=== PATIENT | female | born 1970 | race Caucasian/White ===

== ENCOUNTER 2020-05-03 21:24 | Emergency (ER) | payer MEDICARE, MEDICAID ==
[~2020-05-03] VITALS: Ht 165.1 cm; Wt 111.0 kg
[2020-05-03 22:30] LABS: BASO % 1 % (0-3); EOS # 0.1 x10^3/uL (0.0-0.7); EOS % 1 % (0-3); HEMATOCRIT 35.1 % (36.0-47.0); HEMOGLOBIN 11.4 g/dL (12.0-15.5); LYMPH # 1.5 x10^3/uL (1.0-4.8); LYMPH % 31 % (24-48); MEAN CORPUSCULAR HEMOGLOBIN 26 pg (25-35); MEAN CORPUSCULAR HGB CONC 33 g/dL (31-37); MEAN CORPUSCULAR VOLUME 79 fL (79-100); MONO # 0.5 x10^3/uL (0.0-1.1); MONO % 10 % (0-9); NEUT # 2.9 x10^3/uL (1.8-7.7); NEUT % 58 % (31-73); PLATELET COUNT 182 x10^3/uL (140-400); RED BLOOD COUNT 4.48 x10^6/uL (3.50-5.40); RED CELL DISTRIBUTION WIDTH 15.9 % (11.5-14.5); WHITE BLOOD COUNT 5.1 x10^3/uL (4.0-11.0)
--- NOTE | 2020-05-03 22:33 | EKG ---
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
--- NOTE | 2020-05-03 22:43 | PHYS DOC ---
Past Medical History Past Medical History: Diabetes-Type II, GERD, High Cholesterol, Hypothyroid, Seizure Additional Past Medical Histor: ZAC, LEFT FOOT DROP, CDIFF Past Surgical History: Other Additional Past Surgical Histo: "3 OSTOMY SURGERIES AND A TAKE DOWN." Smoking Status: Never Smoker Alcohol Use: None General Adult EDM: Chief Complaint: MECHANICAL FALL HPI: HPI: Patient is a 50 year old female who presents with right lower orbit hematoma following mechanical fall. Patient reportedly fell while she was taking a shower at her senior care and was found by her roommate. She does not remembering falling or what caused her to fall. She reports an 8/10 pain unde rneath her orbit on her upper right cheek. She describes the pain as a pressure that feels like she has a baseball in her cheek. She reports not having any other pain including neck pain midline pain back pain or extremity pain. EOM are intact bilaterally. She has an extensive past medical and surgical history including diabetes, neuropathy, multiple abdominal surgeries--and reportedly only has her ileum left of her small intestine. Has no other complaints or reported injuries at this time. Review of Systems: Review of Systems: Constitutional: Denies fever or chills Eyes: Denies redness or eye pain. EOM intact bilaterally HENT: Denies nasal congestion or sore throat Respiratory: Denies cough or shortness of breath Cardiovascular: Denies chest pain or palpitations GI: Denies abdominal pain, nausea, or vomiting : Denies dysuria or hematuria Musculoskeletal: Denies back pain or joint pain Integument: Denies rash or skin lesions. Neurologic: Denies headache, focal weakness or sensory changes Complete systems were reviewed and found to be within normal limits, except as documented in this note. Heart Score: C/O Chest Pain: N/A Current Medications: Current Medications Medications (Trade) Dose Ordered Sig/Farida Start Time Stop Time Status Last Admin Dose Admin Ketorolac Tromethamine (Toradol 15mg Vial) 15 mg 1X ONCE 05/03/20 22:45 05/03/20 22:46 UNV Sodium Chloride 1,000 ml @ 1,000 mls/hr 1X ONCE 05/03/20 23:00 05/03/20 23:59 Allergies: Allergies: Allergies Coded Allergies Type Severity Reaction Last Updated Verified Benzodiazepines Allergy Intermediate 05/03/20 Yes blueberry Allergy Intermediate 05/03/20 Yes chlorpromazine Allergy Intermediate 05/03/20 Yes mushroom Allergy Intermediate 05/03/20 Yes psyllium Allergy Intermediate 05/03/20 Yes Physical Exam: PE: Constitutional: Well developed, well nourished, no acute distress, non-toxic appearance HENT: Normocephalic, atraumatic head. Hematoma on right cheek/lower orbit present Eyes: PERRL, EOMI, conjunctiva normal, no discharge Neck: Normal range of motion, no tenderness, supple Lungs & Thorax: No respiratory distress, equal chest rise and fall Abdomen: Soft, no tenderness Skin: Warm, dry, no erythema, no rash Back: No tenderness, no CVA tenderness Extremities: No tenderness, ROM intact, no edema Neurologic: Alert and oriented X 3, normal motor function, normal sensory function, no focal deficits noted Psychologic: Affect normal, judgment normal Current Patient Data: Labs: Laboratory Tests Test 05/03/20 21:34 White Blood Count 5.1 x10^3/uL (4.0-11.0) Red Blood Count 4.48 x10^6/uL (3.50-5.40) Hemoglobin 11.4 g/dL (12.0-15.5) L Hematocrit 35.1 % (36.0-47.0) L Mean Corpuscular Volume 79 fL (79-100) Mean Corpuscular Hemoglobin 26 pg (25-35) Mean Corpuscular Hemoglobin Concent 33 g/dL (31-37) Red Cell Distribution Width 15.9 % (11.5-14.5) H Platelet Count 182 x10^3/uL (140-400) Neutrophils (%) (Auto) 58 % (31-73) Lymphocytes (%) (Auto) 31 % (24-48) Monocytes (%) (Auto) 10 % (0-9) H Eosinophils (%) (Auto) 1 % (0-3) Basophils (%) (Auto) 1 % (0-3) Neutrophils # (Auto) 2.9 x10^3/uL (1.8-7.7) Lymphocytes # (Auto) 1.5 x10^3/uL (1.0-4.8) Monocytes # (Auto) 0.5 x10^3/uL (0.0-1.1) Eosinophils # (Auto) 0.1 x10^3/uL (0.0-0.7) Basophils # (Auto) 0.0 x10^3/uL (0.0-0.2) Laboratory Tests 05/03/20 21:34 Vital Signs: Vital Signs Date Time Temp Pulse Resp B/P (MAP) Pulse Ox O2 Delivery O2 Flow Rate FiO2 05/03/20 21:31 98.1 81 12 166/68 (100) 97 Room Air 98.1 EKG: EKG: Reviewed at 2230. Sinus rhythm, no STEMI. HR 76 bpm. QT/QTc 400/455 ms. Radiology/Procedures: Radiology/Procedures: PROCEDURE: CT HEAD AND CERVICAL SPINE WO Exam: CT head, maxillofacial and cervical spine INDICATION: Pain, status post fall with facial trauma TECHNIQUE: Sequential axial images through the head, face and cervical spine were obtained without the administration of IV contrast. Comparisons: None FINDINGS: Head: No focal parenchymal lesion or hemorrhage is identified. There is no midline shift or sulcal effacement. No acute vascular territory infarction is identified. Terry-white distinction is preserved. The ventricular system is within normal limits without compression hydrocephalus. The basal cisterns are well maintained. Face: There is a soft tissue contusion overlying the right maxillary sinus. The visualized portions of the paranasal sinuses and mastoid air cells are well- pneumatized. No acute fractures. Cervical spine: Straightening of cervical spine which may positional. Vertebral body heights are well-maintained. Fracture to the cervical spine is not identified. No significant spondylotic change in the cervical spine. Visualized paraspinal soft tissues are unremarkable. IMPRESSION: 1. No acute intracranial abnormality. 2. Soft tissue contusion in the subcutaneous fat overlying the right maxillary sinus. Underlying osseous abnormality. 3. Negative CT C-spine for acute traumatic injury. Exposure: One or more of the following in the visualized dose reduction techniques were utilized for this examination: 1. Automated exposure control 2. Adjustment of the MA and/or KV according to patient size Use of iterative of reconstructive technique Electronically signed by: Bhavik Verdugo MD (05/03/2020 11:11 PM) [facility] PROCEDURE: CT MAXILLOFACIAL WO CONTRAST Exam: CT head, maxillofacial and cervical spine INDICATION: Pain, status post fall with facial trauma TECHNIQUE: Sequential axial images through the head, face and cervical spine were obtained without the administration of IV contrast. Comparisons: None FINDINGS: Head: No focal parenchymal lesion or hemorrhage is identified. There is no midline shift or sulcal effacement. No acute vascular territory infarction is identified. Terry-white distinction is preserved. The ventricular system is within normal limits without compression hydrocephalus. The basal cisterns are well maintained. Face: There is a soft tissue contusion overlying the right maxillary sinus. The visualized portions of the paranasal sinuses and mastoid air cells are well- pneumatized. No acute fractures. Cervical spine: Straightening of cervical spine which may positional. Vertebral body heights are well-maintained. Fracture to the cervical spine is not identified. No significant spondylotic change in the cervical spine. Visualized paraspinal soft tissues are unremarkable. IMPRESSION: 1. No acute intracranial abnormality. 2. Soft tissue contusion in the subcutaneous fat overlying the right maxillary sinus. Underlying osseous abnormality. 3. Negative CT C-spine for acute traumatic injury. Exposure: One or more of the following in the visualized dose reduction techniques were utilized for this examination: 1. Automated exposure control 2. Adjustment of the MA and/or KV according to patient size Use of iterative of reconstructive technique Electronically signed by: Bhavik Verdugo MD (05/03/2020 11:11 PM) [facility] Course & Med Decision Making: Course & Med Decision Making Pertinent Labs and Imaging studies reviewed. (See chart for details) As patient does not remember her fall, she was evaluated for possible reasons leading to syncope. Labs, electrolytes, lactic acid, orthostatics, heart enzymes, UA, EKG were obtained. EKG showed normal sinus rhythm and heart enzymes showed no signs of cardiac arrest. CT head and face were obtained which showed no fracture and no acute abnormalities. Patient was found to have low potassium and magnesium and electrolytes were replenished in ED. Urinalysis showed no sign of UTI or infection. She had normal orthostatics. Patient's lac tic acid was within normal limits, suggesting that this event was likely not due to a seizure. She received medication for pain control and an ice pack to decrease swelling over affected area. Patient stable for discharge with outpatient follow-up with PCP. Discussed findings and plan with patient, who acknowledges understanding and agreement. Colten Disclaimer: Colten Disclaimer: This electronic medical record was generated, in whole or in part, using a voice recognition dictation system. Departure Departure Impression: Primary Impression: Fall Qualified Codes: W19.XXXA - Unspecified fall, initial encounter Additional Impressions: Hypomagnesemia Hypokalemia Contusion of face Qualified Codes: S00.83XA - Contusion of other part of head, initial encounter Disposition: 01 DC HOME SELF CARE/HOMELESS Condition: STABLE Referrals: FELIPE HANSEN MD (PCP) Patient Instructions: Facial or Scalp Contusion, [id number], Fall Prevention and Home Safety, [id number], Hypokalemia, Hypomagnesemia, Potassium Content of Foods Additional Instructions: ICE area of discomfort 20 min on then leave off next 20 mins. Repeat several times daily as needed for next few days. Take over the counter Tylenol and/or Ibuprofen for pain or discomfort. MAGDALENA FAUSTIN DO May 03, 2020 22:42
[2020-05-03 22:44] LABS: CALCIUM 8.6 mg/dL (8.5-10.1); CREATININE 1.1 mg/dL (0.6-1.0); GFR 52.8; POTASSIUM 3.4 mmol/L (3.5-5.1)
[2020-05-03 22:52] LABS: ALBUMIN 3.7 g/dL (3.4-5.0); ALBUMIN/GLOBULIN RATIO 1.1 (1.0-1.7); MAGNESIUM 1.4 mg/dL (1.8-2.4); TOTAL BILIRUBIN 0.2 mg/dL (0.2-1.0)
[2020-05-03] MEDS ORDERED: IV NORMAL SALINE 1000ML BAG 1,000 ML IV ONE (23:00)
[2020-05-03] MEDS ORDERED: KETOROLAC 15 MG/ML VIAL. IVP ONE (23:00)
--- NOTE | 2020-05-03 23:14 | RAD ---
Exam: CT head, maxillofacial and cervical spine INDICATION: Pain, status post fall with facial trauma TECHNIQUE: Sequential axial images through the head, face and cervical spine were obtained without th e administration of IV contrast. Comparisons: None FINDINGS: Head: No focal parenchymal lesion or hemorrhage is identified. There is no midline shift or sulcal effaceme nt. No acute vascular territory infarction is identified. Terry-white distinction is preserved. The ventricular system is within normal limits without compression hydrocephalus. The basal cisterns are well maintained. Face: There is a soft tissue contusion overlying the right maxillary sinus. The visualized portions of the paranasal sinuses and mastoid air cells are well-pneumatized. No acute fractures. Cervical spine: Straightening of cervical spine which may positional. Vertebral body heights are well-maintained. Fracture to the cervical spine is not identified. No significant spondylotic change in the cervical spine. Visualized paraspinal soft tissues are unremarkable. IMPRESSION: 1. No acute intracranial abnormality. 2. Soft tissue contusion in the subcutaneous fat overlying the right maxillary sinus. Underlying oss eous abnormality. 3. Negative CT C-spine for acute traumatic injury. Exposure: One or more of the following in the visualized dose reduction techniques were utilized for this examination: 1. Automated exposure control 2. Adjustment of the MA and/or KV according to patient size Use of iterative of reconstructive technique Electronically signed by: Bhavik Verdugo MD (05/03/2020 11:11 PM) [facility]
[2020-05-03 23:24] LABS: BILIRUBIN,URINE NEGATIVE (NEG); CLARITY,URINE CLOUDY; COLOR,URINE YELLOW; NITRITE,URINE NEGATIVE (NEG); PH,URINE 5.5 (<5.0-8.0); PROTEIN,URINE 100 mg/dL (NEG-TRACE); UROBILINOGEN,URINE 0.2 mg/dL (0.2 mg/dL)
[2020-05-03 23:31] LABS: BACTERIA,URINE MODERATE /HPF (0-FEW)
[2020-05-03 23:32] LABS: RBC,URINE 0 /HPF (0-2); WBC,URINE OCC /HPF (0-4)
[2020-05-03] MEDS ORDERED: POTASSIUM CHLORIDE 20 MEQ TABLET.ER. PO ONE (23:45)
[2020-05-03] MEDS ORDERED: MAGNESIUM CHLORIDE ER 64 MG TABLET.ER PO ONE (23:45)
[2020-05-04 00:15] VITALS: BP 188/67
[2020-05-05] MEDS ORDERED: OMEP20CA16 PO (04:24)
[2020-05-05] MEDS ORDERED: METF500T16 PO (04:24)
[2020-05-05] MEDS ORDERED: FERR325T14 PO (04:24)
[2020-05-05] MEDS ORDERED: SENN8.6T11 PO (04:24)
[2020-05-05] MEDS ORDERED: LACO50TA PO (04:24)
[2020-05-05] MEDS ORDERED: TRAZ-118 PO (04:24)
[2020-05-05] MEDS ORDERED: ATOR10TA60 PO (04:24)
[2020-05-05] MEDS ORDERED: LEVO75TA5 PO (04:24)
[2020-05-05] MEDS ORDERED: VENL75TA2 PO (04:24)
[2020-05-05] MEDS ORDERED: SITA100T PO (04:24)
[2020-05-05] MEDS ORDERED: GABA600T7 PO (04:24)
[2020-05-05] MEDS ORDERED: ASCO500C PO (04:24)
[2020-05-05] MEDS ORDERED: FENO145T3 PO (04:24)
== END 2020-05-04 00:28 | disposition home or self-care (01) ==
LOC: ER 21:24 → EDBD 21:24 → ER 05-04 00:28
DX: S00.83XA Contusion of other part of head, initial encounter (principal); E83.42 Hypomagnesemia; E87.6 Hypokalemia; E11.9 Type 2 diabetes mellitus without complications; K21.9 Gastro-esophageal reflux disease without esophagitis; E78.00 Pure hypercholesterolemia, unspecified; E03.9 Hypothyroidism, unspecified; W18.39XA Other fall on same level, initial encounter; Y93.E1 Activity, personal bathing and showering; Y92.128 Other place in nursing home as the place of occurrence of the external cause; Y99.8 Other external cause status
CPT/HCPCS: 99285; J1885; J7030; 36415; 70450; 70486; 72125; 80053; 81001; 82553; 83605; 83735; 84484; 85025; 87086; 93005; 96361; 96374

== ENCOUNTER 2020-05-04 08:01 | Emergency (ER) | payer MEDICARE, MEDICAID ==
[~2020-05-04] VITALS: Ht 175.3 cm; Wt 95.0 kg
[2020-05-04 08:26] LABS: BASO # 0.1 x10^3/uL (0.0-0.2); BASO % 1 % (0-3); EOS # 0.1 x10^3/uL (0.0-0.7); EOS % 2 % (0-3); HEMATOCRIT 37.2 % (36.0-47.0); HEMOGLOBIN 12.3 g/dL (12.0-15.5); LYMPH # 1.9 x10^3/uL (1.0-4.8); LYMPH % 36 % (24-48); MEAN CORPUSCULAR HEMOGLOBIN 26 pg (25-35); MEAN CORPUSCULAR HGB CONC 33 g/dL (31-37); MEAN CORPUSCULAR VOLUME 80 fL (79-100); MONO # 0.5 x10^3/uL (0.0-1.1); MONO % 10 % (0-9); NEUT # 2.7 x10^3/uL (1.8-7.7); NEUT % 51 % (31-73); PLATELET COUNT 185 x10^3/uL (140-400); RED BLOOD COUNT 4.68 x10^6/uL (3.50-5.40); WHITE BLOOD COUNT 5.2 x10^3/uL (4.0-11.0)
[2020-05-04 08:35] LABS: CALCIUM 8.6 mg/dL (8.5-10.1); GFR 58.9; POTASSIUM 4.1 mmol/L (3.5-5.1)
[2020-05-04] MEDS ORDERED: LACOSAMIDE 50 MG TABLET PO STA (08:41)
[2020-05-04 08:42] LABS: ALBUMIN 3.5 g/dL (3.4-5.0); ALBUMIN/GLOBULIN RATIO 1.1 (1.0-1.7); MAGNESIUM 1.5 mg/dL (1.8-2.4); TOTAL BILIRUBIN 0.2 mg/dL (0.2-1.0); TOTAL PROTEIN 6.7 g/dL (6.4-8.2)
--- NOTE | 2020-05-04 08:45 | PHYS DOC ---
Past Medical History Past Medical History: Diabetes-Type II, GERD, High Cholesterol, Hypothyroid, Seizure Additional Past Medical Histor: ZAC, LEFT FOOT DROP, CDIFF, Borderline personality, Past Surgical History: Other Additional Past Surgical Histo: "3 OSTOMY SURGERIES AND A TAKE DOWN." Smoking Status: Never Smoker Alcohol Use: None General Adult EDM: Chief Complaint: SEIZURE HPI: HPI: Patient is a 50 year old female who [facility] due to [facility] activity. Patient has history of seizure disorder, she is on Vimpat, 50 mg twice a day. Patient had not taken her medication this morning. Patient was evaluated here last night after she fell and hit her head on the ground, CT scan of head, C-spine, facial bones did not show any acute problem. Patient was found to have low potassium and low magnesium. Patient was given potassium and will be observed in the ER. Patient denied headache, no neck pain at this time, denies any cough or fever. Review of Systems: Review of Systems: Constitutional: Denies fever or chills. [] Eyes: Denies change in visual acuity. [] HENT: Denies nasal congestion or sore throat. [] Respiratory: Denies cough or shortness of breath. [] Cardiovascular: Denies chest pain or edema. [] GI: Denies abdominal pain, nausea, vomiting, bloody stools or diarrhea. [] : Denies dysuria. [] Musculoskeletal: Denies back pain or joint pain. [] Integument: Denies rash. [] Neurologic: Denies headache, focal weakness or sensory changes. Positive for seizure. Endocrine: Denies polyuria or polydipsia. [] Lymphatic: Denies swollen glands. [] Psychiatric: Denies depression or anxiety. [] Heart Score: C/O Chest Pain: N/A Risk Factors: Risk Factors: DM, Current or recent (<one month) smoker, HTN, HLP, family history of CAD, obesity. Risk Scores: Score 0 - 3: 2.5% MACE over next 6 weeks - Discharge Home Score 4 - 6: 20.3% MACE over next 6 weeks - Admit for Clinical Observation Score 7 - 10: 72.7% MACE over next 6 weeks - Early Invasive Strategies Current Medications: Current Medications Medications (Trade) Dose Ordered Sig/Farida Start Time Stop Time Status Last Admin Dose Admin Lacosamide (Vimpat) 50 mg 1X STAT 05/04/20 08:41 05/04/20 08:42 DC Allergies: Allergies: Allergies Coded Allergies Type Severity Reaction Last Updated Verified Benzodiazepines Allergy Intermediate 05/03/20 Yes blueberry Allergy Intermediate 05/03/20 Yes chlorpromazine Allergy Intermediate 05/03/20 Yes mushroom Allergy Intermediate 05/03/20 Yes psyllium Allergy Intermediate 05/03/20 Yes Physical Exam: PE: Constitutional: Well developed, well nourished, no acute distress, non-toxic appearance. [] HENT: Normocephalic, atraumatic, bilateral external ears normal, oropharynx moist, no oral exudates, nose normal. Right-sided facial contusion from the fall last night Eyes: PERRLA, EOMI, conjunctiva normal, no discharge. [] Neck: Normal range of motion, no tenderness, supple, no stridor. [] Cardiovascular:Heart rate regular rhythm, no murmur [] Lungs & Thorax: Bilateral breath sounds clear to auscultation [] Abdomen: Bowel sounds normal, soft, no tenderness, no masses, no pulsatile masses. [] Skin: Warm, dry, no erythema, no rash. [] Back: No tenderness, no CVA tenderness. [] Extremities: No tenderness, no cyanosis, no clubbing, ROM intact, no edema. [] Neurologic: Alert and oriented X 3, normal motor function, normal sensory function, no focal deficits noted. [] Psychologic: Affect normal, judgement normal, mood normal. [] Current Patient Data: Labs: Laboratory Tests Test 05/04/20 08:10 White Blood Count 5.2 x10^3/uL (4.0-11.0) Red Blood Count 4.68 x10^6/uL (3.50-5.40) Hemoglobin 12.3 g/dL (12.0-15.5) Hematocrit 37.2 % (36.0-47.0) Mean Corpuscular Volume 80 fL (79-100) Mean Corpuscular Hemoglobin 26 pg (25-35) Mean Corpuscular Hemoglobin Concent 33 g/dL (31-37) Red Cell Distribution Width 16.0 % (11.5-14.5) H Platelet Count 185 x10^3/uL (140-400) Neutrophils (%) (Auto) 51 % (31-73) Lymphocytes (%) (Auto) 36 % (24-48) Monocytes (%) (Auto) 10 % (0-9) H Eosinophils (%) (Auto) 2 % (0-3) Basophils (%) (Auto) 1 % (0-3) Neutrophils # (Auto) 2.7 x10^3/uL (1.8-7.7) Lymphocytes # (Auto) 1.9 x10^3/uL (1.0-4.8) Monocytes # (Auto) 0.5 x10^3/uL (0.0-1.1) Eosinophils # (Auto) 0.1 x10^3/uL (0.0-0.7) Basophils # (Auto) 0.1 x10^3/uL (0.0-0.2) Laboratory Tests 05/04/20 08:10 Vital Signs: Vital Signs Date Time Temp Pulse Resp B/P (MAP) Pulse Ox O2 Delivery O2 Flow Rate FiO2 05/04/20 08:19 97.9 80 20 188/67 (107) 98 Room Air 97.9 EKG: EKG: EKG was done at 9-year-old 7, heart rate of 82 beats per minutes, sinus rhythm, no ST segment elevation, normal axis. Radiology/Procedures: Radiology/Procedures: [][facility] [address] [place], [place] [id number] IMAGING REPORT Signed PATIENT: MICKI OSUNA ACCOUNT: [id number] : 1970 LOCATION: ER AGE: 50 SEX: F EXAM STATUS: PRE ER ORD. PHYSICIAN: PARESH TINOCO DO REASON: FELL LAST NIGHT, HEAD INJURY, HAD A SEIZURE THIS MORNING PROCEDURE: CT HEAD WO CONTRAST EXAMINATION: CT HEAD/BRAIN WO (CT HEAD WITHOUT IV CONTRAST) CLINICAL HISTORY: FELL LAST NIGHT, HEAD INJURY, HAD A SEIZURE THIS MORNING TECHNIQUE: Serial axial images without IV contrast were obtained from the vertex to the foramen magnum. CT Dose Reduction Employed: One or more of the following individualized dose reduction techniques were utilized for this examination: 1. Automated exposure control 2. Adjustment of the mA and/or kV according to patient size 3. Use of iterative reconstruction technique. COMPARISON: Head and maxillofacial CT 05/03/2020 FINDINGS: Acute Change: No evidence of an acute infarct or other acute parenchymal process. Hemorrhage: No evidence of acute intracranial hemorrhage. Mass Lesion/Mass Effect: No evidence of intracranial mass or extraaxial fluid collection. No significant mass effect. Chronic Change: No significant changes. Parenchyma: No significant volume loss. Parenchyma otherwise within normal limits for age. Ventricles: Ventricles within normal limits for age. Paranasal Sinuses and Skull Base: Visualized paranasal sinuses clear. Visualized skull base and soft tissues unremarkable. IMPRESSION: No evidence of acute intracranial abnormality or significant interval change. Electronically signed by: Job Jones DO (05/04/2020 9:09 AM) [facility] DICTATED and SIGNED BY: JOB JONES DO DATE: 05/04/20 [id number] Course & Med Decision Making: Course & Med Decision Making Pertinent Labs and Imaging studies reviewed. (See chart for details) Patient is a 50-year-old female who was [facility] EMS [facility] due to seizure activity. Patient is on Vimpat for seizure disorder, patient had not taken her morning medication. Patient had no seizure in the ER, her magnesium level still low, patient was given magnesium supplement and Vimpat in the ER. Patient will be discharged home, she will need to follow-up with her family physician and her neurologist for for seizure evaluation. Colten Disclaimer: Colten Disclaimer: This electronic medical record was generated, in whole or in part, using a voice recognition dictation system. Departure Departure Impression: Primary Impression: Seizure Additional Impression: Hypomagnesemia Disposition: 01 DC HOME SELF CARE/HOMELESS Condition: IMPROVED Referrals: FELIPE HANSEN MD (PCP) Follow up with your doctor this week Patient Instructions: Hypomagnesemia, Seizure, Adult Additional Instructions: Thank you for visiting our Emergency Department. We appreciate you trusting us with your care. If any additional problems come up don't hesitate to return to visit us. Please follow up with your primary care provider so they can plan additional care if needed and know about the problem that you had. If symptoms worsen come back to the Emergency Department. Any concerning symptoms that start such as chest pain, shortness of air, weakness or numbness on one side of the body, running high fevers or any other concerning symptoms return to the ER. PARESH TINOCO DO May 04, 2020 08:45
[2020-05-04] MEDS ORDERED: LIDOCAINE 1% Multi-Dose 20 ML VIAL. INJ ONE (09:00)
--- NOTE | 2020-05-04 09:12 | RAD ---
EXAMINATION: CT HEAD/BRAIN WO (CT HEAD WITHOUT IV CONTRAST) CLINICAL HISTORY: FELL LAST NIGHT, HEAD INJURY, HAD A SEIZURE THIS MORNING TECHNIQUE: Serial axial images without IV contrast were obtained from the vertex to the foramen magnu m. CT Dose Reduction Employed: One or more of the following individualized dose reduction techniques wer e utilized for this examination: 1. Automated exposure control 2. Adjustment of the mA and/or kV ac cording to patient size 3. Use of iterative reconstruction technique. COMPARISON: Head and maxillofacial CT 05/03/2020 FINDINGS: Acute Change: No evidence of an acute infarct or other acute parenchymal process. Hemorrhage: No evidence of acute intracranial hemorrhage. Mass Lesion/Mass Effect: No evidence of intracranial mass or extraaxial fluid collection. No signific ant mass effect. Chronic Change: No significant changes. Parenchyma: No significant volume loss. Parenchyma otherwise within normal limits for age. Ventricles: Ventricles within normal limits for age. Paranasal Sinuses and Skull Base: Visualized paranasal sinuses clear. Visualized skull base and soft tissues unremarkable. IMPRESSION: No evidence of acute intracranial abnormality or significant interval change. Electronically signed by: Job Morgan DO (05/04/2020 9:09 AM) [facility]
--- NOTE | 2020-05-04 09:29 | EKG ---
[facility] [address] [place] [address] Test Date: 2020-05-04 Test Time: 08:06:48 Pat Name: MICKI OSUNA Department: Room: Gender: F Program Review Director: : 1970 Requested By: PARESH TINOCO Order Number: [id number] Reading MD: Measurements Intervals [place] Rate: 82 P: 58 [place]: 192 QRS: 72 QRSD: 94 T: 70 QT: 404 QTc: 475 Interpretive Statements SINUS RHYTHM PROLONGED QT NO SPECIFIC ECG ABNORMALITIES RI6.02 No previous ECG available for comparison
[2020-05-04] MEDS ORDERED: MAGNESIUM SULFATE 2GM 50 ML IV ONE (09:45)
[2020-05-04 10:16] LABS: BILIRUBIN,URINE NEGATIVE (NEG); COLOR,URINE YELLOW; NITRITE,URINE NEGATIVE (NEG); PROTEIN,URINE 100 mg/dL (NEG-TRACE); UROBILINOGEN,URINE 0.2 mg/dL (0.2 mg/dL)
[2020-05-04 10:28] LABS: CLARITY,URINE HAZY
[2020-05-04 10:30] LABS: AMORPHOUS SEDIMENT,UR PRESENT /HPF; BACTERIA,URINE 0 /HPF (0-FEW)
[2020-05-04 10:34] LABS: GRANULAR CASTS,URINE OCCASIONAL /HPF; HYALINE CASTS, URINE FEW /HPF; RBC,URINE 0 /HPF (0-2)
[2020-05-04 12:33] VITALS: BP 170/101
[2020-05-05] MEDS ORDERED: FERR325T14 PO (04:24)
[2020-05-05] MEDS ORDERED: LEVO75TA5 PO (04:24)
[2020-05-05] MEDS ORDERED: GABA600T7 PO (04:24)
[2020-05-05] MEDS ORDERED: ASCO500C PO (04:24)
[2020-05-05] MEDS ORDERED: SITA100T PO (04:24)
[2020-05-05] MEDS ORDERED: SENN8.6T11 PO (04:24)
[2020-05-05] MEDS ORDERED: OMEP20CA16 PO (04:24)
[2020-05-05] MEDS ORDERED: ATOR10TA60 PO (04:24)
[2020-05-05] MEDS ORDERED: FENO145T3 PO (04:24)
[2020-05-05] MEDS ORDERED: VENL75TA2 PO (04:24)
[2020-05-05] MEDS ORDERED: LACO50TA PO (04:24)
[2020-05-05] MEDS ORDERED: TRAZ-118 PO (04:24)
[2020-05-05] MEDS ORDERED: METF500T16 PO (04:24)
== END 2020-05-04 13:15 | disposition home or self-care (01) ==
LOC: ER 08:01
DX: G40.909 Epilepsy, unspecified, not intractable, without status epilepticus (principal); E83.42 Hypomagnesemia; E11.9 Type 2 diabetes mellitus without complications; K21.9 Gastro-esophageal reflux disease without esophagitis; E78.00 Pure hypercholesterolemia, unspecified; E03.9 Hypothyroidism, unspecified; Z98.890 Other specified postprocedural states; Z88.8 Allergy status to other drugs, medicaments and biological substances; Z91.018 Allergy to other foods; Z88.6 Allergy status to analgesic agent
CPT/HCPCS: 36415; 70450; 80053; 81001; 82550; 83735; 84484; 85025; 93005; 96365; 99285; J3475

== ENCOUNTER 2020-05-25 02:30 | Emergency (ER) | payer MEDICARE, MEDICAID ==
[~2020-05-25] VITALS: Ht 170.2 cm; Wt 100.0 kg
[~2020-05-25 02:30] MED LIST: ASCO500C PO; ATOR10TA60 PO; CYAN100072 PO; FENO145T3 PO; FERR325T14 PO; GABA600T7 PO; LACO50TA PO; LEVO75TA5 PO; LORA2ORA7 PO; METF500T16 PO; NYST15PO9 TP; OMEP20CA16 PO; SENN8.6T11 PO; SITA100T PO; TRAZ-118 PO; VENL75TA2 PO
[2020-05-25 03:03] LABS: BASO # 0.1 x10^3/uL (0.0-0.2); BASO % 1 % (0-3); EOS # 0.1 x10^3/uL (0.0-0.7); EOS % 2 % (0-3); HEMATOCRIT 35.7 % (36.0-47.0); HEMOGLOBIN 11.8 g/dL (12.0-15.5); LYMPH % 35 % (24-48); MEAN CORPUSCULAR HEMOGLOBIN 26 pg (25-35); MEAN CORPUSCULAR HGB CONC 33 g/dL (31-37); MEAN CORPUSCULAR VOLUME 79 fL (79-100); MONO # 0.5 x10^3/uL (0.0-1.1); MONO % 9 % (0-9); NEUT # 3.1 x10^3/uL (1.8-7.7); NEUT % 53 % (31-73); PLATELET COUNT 193 x10^3/uL (140-400); RED BLOOD COUNT 4.54 x10^6/uL (3.50-5.40); RED CELL DISTRIBUTION WIDTH 15.7 % (11.5-14.5); WHITE BLOOD COUNT 5.8 x10^3/uL (4.0-11.0)
[2020-05-25 03:14] LABS: GFR 58.9; POTASSIUM 3.6 mmol/L (3.5-5.1)
[2020-05-25 03:19] LABS: ALBUMIN 3.5 g/dL (3.4-5.0); ALBUMIN/GLOBULIN RATIO 0.9 (1.0-1.7); TOTAL BILIRUBIN 0.3 mg/dL (0.2-1.0); TOTAL PROTEIN 7.2 g/dL (6.4-8.2)
[2020-05-25 04:06] LABS: PREG TEST PT QUAL NEGATIVE (NEG)
--- NOTE | 2020-05-25 04:13 | RAD ---
STUDY: CT head without contrast INDICATION: Fall. Seizure. COMPARISON: 05/16/2020 TECHNIQUE: Axial CT imaging through the head without the use of intravenous contrast. Sagittal and co anuradha reformats were obtained. One or more of the following individualized dose reduction techniques were utilized for this examinat ion: 1. Automated exposure control 2. Adjustment of the mA and/or kV according to patient size 3. Use of iterative reconstruction technique. FINDINGS: No acute intracranial hemorrhage. No midline shift or hydrocephalus. Unchanged sulcation pattern. No CT evidence for an acute cortical infarction. Partially imaged soft tissue prominence along the right aspect of the zygomatic arch was present prev iously. Nonspecific rightward gaze deviation. Redemonstration of diffuse calvarial thickening with a predilection for the frontal bone. No depressed calvarial fracture. IMPRESSION: No acute intracranial abnormality by CT. No apparent change from the 05/16/2020 comparison. Electronically signed by: KWABENA BARBOZA MD (05/25/2020 4:11 AM) [facility]
--- NOTE | 2020-05-25 05:12 | PHYS DOC ---
Past Medical History Past Medical History: Diabetes-Type II, GERD, High Cholesterol, Hypothyroid, Seizure Additional Past Medical Histor: ZAC, LEFT FOOT DROP, CDIFF, Borderline personality, Past Surgical History: Other Additional Past Surgical Histo: "3 OSTOMY SURGERIES AND A TAKE DOWN." Smoking Status: Never Smoker Alcohol Use: None Drug Use: None Adult General Chief Complaint Chief Complaint: SEIZURE HPI HPI Patient is a 50 year old female with a known past medical history of seizures, hypertension, hyperlipidemia, diabetes now presents emergency department for reported seizure-like activity. According to [facility] staff the patient was at home when she went on her call light. When I entered the room they noted that the patient was on the floor. Reported that she had to to male on tonic- clonic episodes by 2-minute postictal period. States the patient is normally communicative and alert and oriented x4 at baseline. No reported recent history of fevers or injury. Of note the patient was discharged approximately 1 week ago for similar condition and had her medications increased at that time. Review of Systems Review of Systems Constitutional: Denies fever or chills [] Eyes: Denies change in visual acuity, redness, or eye pain [] HENT: Denies nasal congestion or sore throat [] Respiratory: Denies cough or shortness of breath [] Cardiovascular: No additional information not addressed in HPI [] GI: Denies abdominal pain, nausea, vomiting, bloody stools or diarrhea [] : Denies dysuria or hematuria [] Musculoskeletal: Denies back pain or joint pain [] Integument: Denies rash or skin lesions [] Neurologic: Denies headache, focal weakness or sensory changes [] Endocrine: Denies polyuria or polydipsia [] All other systems were reviewed and found to be within normal limits, except as documented in this note. Allergies Allergies Allergies Coded Allergies Type Severity Reaction Last Updated Verified Benzodiazepines Allergy Intermediate 05/03/20 Yes blueberry Allergy Intermediate 05/03/20 Yes chlorpromazine Allergy Intermediate 05/03/20 Yes mushroom Allergy Intermediate 05/03/20 Yes psyllium Allergy Intermediate 05/03/20 Yes Physical Exam Physical Exam Constitutional: Well developed, well nourished, no acute distress, non-toxic appearance. [] HENT: Normocephalic, left periorbital edema, bilateral external ears normal, oropharynx moist, no oral exudates, nose normal. [] Eyes: PERRLA, EOMI, conjunctiva normal, no discharge. [] Neck: Normal range of motion, no tenderness, supple, no stridor. [] Cardiovascular:Heart rate regular rhythm, no murmur [] Lungs & Thorax: Bilateral breath sounds clear to auscultation [] Abdomen: Bowel sounds normal, soft, no tenderness, no masses, no pulsatile masses. [] Skin: Warm, dry, no erythema, no rash. [] Back: No tenderness, no CVA tenderness. [] Extremities: No tenderness, no cyanosis, no clubbing, ROM intact, no edema. [] Neurologic: Alert and oriented X 3, normal motor function, normal sensory function, no focal deficits noted. [] Psychologic: Affect normal, judgement normal, mood normal. [] Current Patient Data Lab Values Laboratory Tests Test 05/25/20 02:53 White Blood Count 5.8 x10^3/uL (4.0-11.0) Red Blood Count 4.54 x10^6/uL (3.50-5.40) Hemoglobin 11.8 g/dL (12.0-15.5) L Hematocrit 35.7 % (36.0-47.0) L Mean Corpuscular Volume 79 fL (79-100) Mean Corpuscular Hemoglobin 26 pg (25-35) Mean Corpuscular Hemoglobin Concent 33 g/dL (31-37) Red Cell Distribution Width 15.7 % (11.5-14.5) H Platelet Count 193 x10^3/uL (140-400) Neutrophils (%) (Auto) 53 % (31-73) Lymphocytes (%) (Auto) 35 % (24-48) Monocytes (%) (Auto) 9 % (0-9) Eosinophils (%) (Auto) 2 % (0-3) Basophils (%) (Auto) 1 % (0-3) Neutrophils # (Auto) 3.1 x10^3/uL (1.8-7.7) Lymphocytes # (Auto) 2.0 x10^3/uL (1.0-4.8) Monocytes # (Auto) 0.5 x10^3/uL (0.0-1.1) Eosinophils # (Auto) 0.1 x10^3/uL (0.0-0.7) Basophils # (Auto) 0.1 x10^3/uL (0.0-0.2) Sodium Level 143 mmol/L (136-145) Potassium Level 3.6 mmol/L (3.5-5.1) Chloride Level 104 mmol/L (98-107) Carbon Dioxide Level 27 mmol/L (21-32) Anion Gap 12 (6-14) Blood Urea Nitrogen 14 mg/dL (7-20) Creatinine 1.0 mg/dL (0.6-1.0) Estimated GFR (Cockcroft-Gault) 58.9 BUN/Creatinine Ratio 14 (6-20) Glucose Level 142 mg/dL (70-99) H Lactic Acid Level 1.9 mmol/L (0.4-2.0) Calcium Level 9.0 mg/dL (8.5-10.1) Total Bilirubin 0.3 mg/dL (0.2-1.0) Aspartate Amino Transferase (AST) 42 U/L (15-37) H Alanine Aminotransferase (ALT) 80 U/L (14-59) H Alkaline Phosphatase 53 U/L (46-116) Ammonia 28 mcmol/L (11-34) Total Protein 7.2 g/dL (6.4-8.2) Albumin 3.5 g/dL (3.4-5.0) Albumin/Globulin Ratio 0.9 (1.0-1.7) L Serum Test, Qualitative Negative (NEG) Laboratory Tests 05/25/20 02:53 Laboratory Tests 05/25/20 02:53 EKG EKG [] Radiology/Procedures Radiology/Procedures STUDY: CT head without contrast INDICATION: Fall. Seizure. COMPARISON: 05/16/2020 TECHNIQUE: Axial CT imaging through the head without the use of intravenous contrast. Sagittal and coronal reformats were obtained. One or more of the following individualized dose reduction techniques were utilized for this examination: 1. Automated exposure control 2. Adjustment of the mA and/or kV according to patient size 3. Use of iterative reconstruction technique. FINDINGS: No acute intracranial hemorrhage. No midline shift or hydrocephalus. Unchanged sulcation pattern. No CT evidence for an acute cortical infarction. Partially imaged soft tissue prominence along the right aspect of the zygomatic arch was present previously. Nonspecific rightward gaze deviation. Redemonstration of diffuse calvarial thickening with a predilection for the frontal bone. No depressed calvarial fracture. IMPRESSION: No acute intracranial abnormality by CT. No apparent change from the 05/16/2020 comparison. Electronically signed by: KWABENA BARBOZA MD (05/25/2020 4:11 AM) [facility] Course & Med Decision Making Course & Med Decision Making Pertinent Labs and Imaging studies reviewed. (See chart for details) 50F presenting with reported seizure-like activity. There is concerned that sensation for 2 minutes apart that this represents onset of status epilepticus. Will obtain labs to make sure there is no other significant underlying etiology and since the patient does have evidence of bruising and swelling of the left eye will obtain a CAT scan to make sure there is no significant intracranial hemorrhage 0548 -discussed the case with the neurologist on-call Dr. Morales who recommends starting the pateint on BID keppra 500mg with outpatient neurology follow up Dragon Disclaimer Dragon Disclaimer This electronic medical record was generated, in whole or in part, using a voice recognition dictation system. Departure Departure Impression: Primary Impression: Seizure Disposition: 01 HOME / SELF CARE / HOMELESS Condition: GOOD Referrals: FELIPE HANSEN MD (PCP) Patient Instructions: Seizure, Adult Additional Instructions: EMERGENCY DEPARTMENT GENERAL DISCHARGE INSTRUCTIONS Thank you for coming to [facility] Emergency Department (ED) today and trusting us with you care. We trust that you had a positive experience in our Emergency Department. If you wish to speak to the department management, you may call the Director at [phone]. YOUR FOLLOW UP INSTRUCTIONS ARE FOLLOWS: 1. Do you have a private Doctor? If you do not have a private doctor, please ask for a resource list of physicians or clinics that may be able to assist you with follow up care. 2. The Emergency Physicain has interpreted your x-rays. The X-Ray specialist will also review them. If there is a change in the findings, you will be notified in 48 hours when at all possible. 3. A lab test or culture has been done, your results will be reviewed and you will be notified if you need a change in treatment. ADDITIONAL INSTRUCTIONS AND INFORMATION: 1. Your care today has been supervised by a physician who is specially trained in emergency care. Many problems require more than one evaluation for a complete diagnosis and treatment. We recommend that you schedule your follow up appointment as recommended to ensure complete treatment of you illness or injury. If you are unable to obtain follow up care and continue to have a problem, or if your condition worsens, we recommend that you return to the ED. 2. We are not able to safely determine your condition over the phone nor are we able to give sound medical advice over the phone. For these safety reasons, if you call for medical advice we will ask you to come to the ED for further evaluation. 3. If you have any questions regarding these discharge instructions please call the ED at [phone]. SAFETY INFORMATION: In the interest of safety, wellness, and injury prevention; we encourage you to wear your sealbelt, if you smoke; quite smoking, and we encourage family to use a protective helmet for bicycling and other sporting events that present an increased risk for head injury. IF YOUR SYMPTOMS WORSEN OR NEW SYMPTOMS DEVELOP, OR YOU HAVE CONCERNS ABOUT YOUR CONDITION; OR IF YOUR CONDITION WORSENS WHILE YOU ARE WAITING FOR YOUR FOLLOW UP APPOINTMENT; EITHER CONTACT YOUR PRIMARY CARE DOCTOR, THE PHYSICIAN WHOSE NAME AND NUMBER YOU WERE GIVEN, OR RETURN TO THE ED IMMEDIATELY. Scripts Levetiracetam (KEPPRA) 500 Mg Tablet 1 TAB PO BID for 30 Days, #60 TAB 0 Refills Prov: FELIPE LR MD 05/25/20 FELIPE LR MD May 25, 2020 05:12
[2020-05-25] MEDS ORDERED: LEVE500T56 PO (05:51)
[2020-05-25] MEDS ORDERED: levETIRAcetam 500 MG TABLET PO SCH (06:00)
--- NOTE | 2020-05-25 06:19 | EKG ---
[facility] [address] [place] [address] Test Date: 2020-05-25 Test Time: 02:43:18 Pat Name: MICKI OSUNA Department: Room: Gender: F Regulatory Affairs Intern: : 1970 Requested By: FELIPE LR Order Number: [id number] Reading MD: Measurements Intervals [place] Rate: 77 P: 42 TN: 184 QRS: 59 QRSD: 94 T: 59 QT: 406 QTc: 461 Interpretive Statements SINUS RHYTHM NORMAL ECG RI6.02 No previous ECG available for comparison
[2020-05-25 09:53] VITALS: BP 135/81
== END 2020-05-25 10:05 | disposition home or self-care (01) ==
LOC: ER 02:30
DX: R56.9 Unspecified convulsions (principal); E11.9 Type 2 diabetes mellitus without complications; K21.9 Gastro-esophageal reflux disease without esophagitis; E78.00 Pure hypercholesterolemia, unspecified; E03.9 Hypothyroidism, unspecified; Z98.890 Other specified postprocedural states; Z88.8 Allergy status to other drugs, medicaments and biological substances; Z91.018 Allergy to other foods
CPT/HCPCS: 36415; 70450; 80053; 82140; 83605; 84703; 85025; 93005; 99285

== ENCOUNTER 2020-05-25 19:30 | Emergency (ER) | payer MEDICARE, MEDICAID ==
[~2020-05-25] VITALS: Ht 170.2 cm; Wt 100.0 kg
[~2020-05-25 19:30] MED LIST changes: +LEVE500T56 PO
[2020-05-25 20:30] LABS: BASO % 1 % (0-3); EOS # 0.1 x10^3/uL (0.0-0.7); EOS % 2 % (0-3); HEMOGLOBIN 11.9 g/dL (12.0-15.5); LYMPH # 1.6 x10^3/uL (1.0-4.8); LYMPH % 30 % (24-48); MEAN CORPUSCULAR HEMOGLOBIN 26 pg (25-35); MEAN CORPUSCULAR HGB CONC 33 g/dL (31-37); MEAN CORPUSCULAR VOLUME 79 fL (79-100); MONO # 0.5 x10^3/uL (0.0-1.1); MONO % 9 % (0-9); NEUT % 58 % (31-73); PLATELET COUNT 201 x10^3/uL (140-400); RED BLOOD COUNT 4.55 x10^6/uL (3.50-5.40); RED CELL DISTRIBUTION WIDTH 15.9 % (11.5-14.5); WHITE BLOOD COUNT 5.2 x10^3/uL (4.0-11.0)
[2020-05-25 20:39] LABS: GFR 58.9; POTASSIUM 3.6 mmol/L (3.5-5.1)
[2020-05-25 20:46] LABS: ALBUMIN 3.8 g/dL (3.4-5.0); ALBUMIN/GLOBULIN RATIO 1.1 (1.0-1.7); TOTAL BILIRUBIN 0.3 mg/dL (0.2-1.0); TOTAL PROTEIN 7.3 g/dL (6.4-8.2)
--- NOTE | 2020-05-25 21:15 | PHYS DOC ---
Past Medical History Past Medical History: Diabetes-Type II, GERD, High Cholesterol, Hypothyroid, Seizure Additional Past Medical Histor: ZAC, LEFT FOOT DROP, CDIFF, Borderline personality, Past Surgical History: Other Additional Past Surgical Histo: "3 OSTOMY SURGERIES AND A TAKE DOWN." Smoking Status: Never Smoker Alcohol Use: None Drug Use: None Adult General Chief Complaint Chief Complaint: SEIZURE [facility] HPI Patient is a 50 year old female with a known history of pseudoseizures presenting to the emergency department today for new onset of seizures, [facility]. Patient noted to have been seen here yesterday for similar episode and was discharged home with a course of Keeverra with plans for neurology follow-up. snf states that the patient had 3 episodes of tonic-clonic episodes that were approximately 1 to 2 minutes in length by approximately 2 to 3 minutes. Of note I did speak to the regional medical director when the initially picked up the patient and noted that the patient has been seen and transferred 40 different times in the last month for reported episodes of seizures. Patient has been diagnosed with pseudoseizures and has not had any dangerous activity. This was relayed to the [facility] but they still felt the patient needed to be brought to the emergency department. On arrival during my evaluation the patient she states that she is feeling well, denies any headache or symptoms at this time. Denies any recent fevers or changes. Review of Systems Review of Systems Constitutional: Denies fever or chills [] Eyes: Denies change in visual acuity, redness, or eye pain [] HENT: Denies nasal congestion or sore throat [] Respiratory: Denies cough or shortness of breath [] Cardiovascular: No additional information not addressed in HPI [] GI: Denies abdominal pain, nausea, vomiting, bloody stools or diarrhea [] : Denies dysuria or hematuria [] Musculoskeletal: Denies back pain or joint pain [] Integument: Denies rash or skin lesions [] Neurologic: Denies headache, focal weakness or sensory changes [] Endocrine: Denies polyuria or polydipsia [] All other systems were reviewed and found to be within normal limits, except as documented in this note. Allergies Allergies Allergies Coded Allergies Type Severity Reaction Last Updated Verified Benzodiazepines Allergy Intermediate 05/03/20 Yes blueberry Allergy Intermediate 05/03/20 Yes chlorpromazine Allergy Intermediate 05/03/20 Yes mushroom Allergy Intermediate 05/03/20 Yes psyllium Allergy Intermediate 05/03/20 Yes Physical Exam Physical Exam Constitutional: Well developed, well nourished, no acute distress, non-toxic appearance. [] HENT: Normocephalic, atraumatic, bilateral external ears normal, oropharynx moist, no oral exudates, nose normal. [] Eyes: PERRLA, EOMI, conjunctiva normal, no discharge. [] Neck: Normal range of motion, no tenderness, supple, no stridor. [] Cardiovascular:Heart rate regular rhythm, no murmur [] Lungs & Thorax: Bilateral breath sounds clear to auscultation [] Abdomen: Bowel sounds normal, soft, no tenderness, no masses, no pulsatile masses. [] Skin: Warm, dry, no erythema, no rash. [] Back: No tenderness, no CVA tenderness. [] Extremities: No tenderness, no cyanosis, no clubbing, ROM intact, no edema. [] Neurologic: Alert and oriented X 3, normal motor function, normal sensory fun ction, no focal deficits noted. [] Psychologic: Affect normal, judgement normal, mood normal. [] Current Patient Data Vital Signs Vital Signs Date Time Temp Pulse Resp B/P (MAP) Pulse Ox O2 Delivery O2 Flow Rate FiO2 05/25/20 19:30 98.4 88 18 158/66 (96) 98 Room Air 98.4 Lab Values Laboratory Tests Test 05/25/20 20:22 White Blood Count 5.2 x10^3/uL (4.0-11.0) Red Blood Count 4.55 x10^6/uL (3.50-5.40) Hemoglobin 11.9 g/dL (12.0-15.5) L Hematocrit 36.0 % (36.0-47.0) Mean Corpuscular Volume 79 fL (79-100) Mean Corpuscular Hemoglobin 26 pg (25-35) Mean Corpuscular Hemoglobin Concent 33 g/dL (31-37) Red Cell Distribution Width 15.9 % (11.5-14.5) H Platelet Count 201 x10^3/uL (140-400) Neutrophils (%) (Auto) 58 % (31-73) Lymphocytes (%) (Auto) 30 % (24-48) Monocytes (%) (Auto) 9 % (0-9) Eosinophils (%) (Auto) 2 % (0-3) Basophils (%) (Auto) 1 % (0-3) Neutrophils # (Auto) 3.0 x10^3/uL (1.8-7.7) Lymphocytes # (Auto) 1.6 x10^3/uL (1.0-4.8) Monocytes # (Auto) 0.5 x10^3/uL (0.0-1.1) Eosinophils # (Auto) 0.1 x10^3/uL (0.0-0.7) Basophils # (Auto) 0.0 x10^3/uL (0.0-0.2) Sodium Level 143 mmol/L (136-145) Potassium Level 3.6 mmol/L (3.5-5.1) Chloride Level 104 mmol/L (98-107) Carbon Dioxide Level 26 mmol/L (21-32) Anion Gap 13 (6-14) Blood Urea Nitrogen 16 mg/dL (7-20) Creatinine 1.0 mg/dL (0.6-1.0) Estimated GFR (Cockcroft-Gault) 58.9 BUN/Creatinine Ratio 16 (6-20) Glucose Level 148 mg/dL (70-99) H Lactic Acid Level 2.6 mmol/L (0.4-2.0) H Calcium Level 9.0 mg/dL (8.5-10.1) Total Bilirubin 0.3 mg/dL (0.2-1.0) Aspartate Amino Transferase (AST) 49 U/L (15-37) H Alanine Aminotransferase (ALT) 88 U/L (14-59) H Alkaline Phosphatase 54 U/L (46-116) Total Protein 7.3 g/dL (6.4-8.2) Albumin 3.8 g/dL (3.4-5.0) Albumin/Globulin Ratio 1.1 (1.0-1.7) Laboratory Tests 05/25/20 20:22 Laboratory Tests 05/25/20 20:22 EKG EKG [] Radiology/Procedures Radiology/Procedures [] Course & Med Decision Making Course & Med Decision Making Pertinent Labs and Imaging studies reviewed. (See chart for details) 50-year-old female presenting with what appears to be pseudoseizures similar to prior episode. No postictal symptoms. Will obtain labs and ensure there is no underlying etiology and anticipate discharge back to [facility]. Dragon Disclaimer Dragon Disclaimer This electronic medical record was generated, in whole or in part, using a voice recognition dictation system. Departure Departure Impression: Primary Impression: Pseudoseizure Additional Impression: Psychogenic nonepileptic seizure Disposition: 01 HOME / SELF CARE / HOMELESS Condition: GOOD Referrals: FELIPE HANSEN MD (PCP) Patient Instructions: Nonepileptic Seizures Additional Instructions: EMERGENCY DEPARTMENT GENERAL DISCHARGE INSTRUCTIONS Thank you for coming to [facility] Emergency Department (ED) today and trusting us with you care. We trust that you had a positive experience in our Emergency Department. If you wish to speak to the department management, you may call the Director at [phone]. YOUR FOLLOW UP INSTRUCTIONS ARE FOLLOWS: 1. Do you have a private Doctor? If you do not have a private doctor, please ask for a resource list of physicians or clinics that may be able to assist you with follow up care. 2. The Emergency Physicain has interpreted your x-rays. The X-Ray specialist will also review them. If there is a change in the findings, you will be notified in 48 hours when at all possible. 3. A lab test or culture has been done, your results will be reviewed and you will be notified if you need a change in treatment. ADDITIONAL INSTRUCTIONS AND INFORMATION: 1. Your care today has been supervised by a physician who is specially trained in emergency care. Many problems require more than one evaluation for a complete diagnosis and treatment. We recommend that you schedule your follow up appointment as recommended to ensure complete treatment of you illness or injury. If you are unable to obtain follow up care and continue to have a problem, or if your condition worsens, we recommend that you return to the ED. 2. We are not able to safely determine your condition over the phone nor are we able to give sound medical advice over the phone. For these safety reasons, if you call for medical advice we will ask you to come to the ED for further evaluation. 3. If you have any questions regarding these discharge instructions please call the ED at [phone]. SAFETY INFORMATION: In the interest of safety, wellness, and injury prevention; we encourage you to wear your sealbelt, if you smoke; quite smoking, and we encourage family to use a protective helmet for bicycling and other sporting events that present an increased risk for head injury. IF YOUR SYMPTOMS WORSEN OR NEW SYMPTOMS DEVELOP, OR YOU HAVE CONCERNS ABOUT YOUR CONDITION; OR IF YOUR CONDITION WORSENS WHILE YOU ARE WAITING FOR YOUR FOLLOW UP APPOINTMENT; EITHER CONTACT YOUR PRIMARY CARE DOCTOR, THE PHYSICIAN WHOSE NAME AND NUMBER YOU WERE GIVEN, OR RETURN TO THE ED IMMEDIATELY. Problem Qualifiers FELIPE LR MD May 25, 2020 21:15
[2020-05-25 23:32] VITALS: BP 135/60
== END 2020-05-25 23:45 | disposition home or self-care (01) ==
LOC: ER 19:30
DX: R56.9 Unspecified convulsions (principal); E11.9 Type 2 diabetes mellitus without complications; K21.9 Gastro-esophageal reflux disease without esophagitis; E78.00 Pure hypercholesterolemia, unspecified; E03.9 Hypothyroidism, unspecified; Z98.890 Other specified postprocedural states; Z88.8 Allergy status to other drugs, medicaments and biological substances; Z91.018 Allergy to other foods
CPT/HCPCS: 36415; 80053; 83605; 85025; 99285

== ENCOUNTER 2020-06-18 00:51 | Emergency (ER) | payer MEDICARE, MEDICAID ==
[~2020-06-18] VITALS: Ht 165.1 cm; Wt 105.0 kg
[~2020-06-18 00:51] MED LIST changes: +ACET325T21 PO; +CYAN500T17 PO; +INSU100V35 SQ; +LACO150T PO; +MAG30ORA2 PO; +POTA20TA4 PO
--- NOTE | 2020-06-18 01:17 | PHYS DOC ---
Past Medical History Past Medical History: Diabetes-Type II, GERD, High Cholesterol, Hypothyroid, Seizure Additional Past Medical Histor: ZAC, LEFT FOOT DROP, CDIFF, Borderline personality, Past Surgical History: Other Additional Past Surgical Histo: "3 OSTOMY SURGERIES AND A TAKE DOWN." Smoking Status: Never Smoker Alcohol Use: None Drug Use: None General Adult EDM: Chief Complaint: MECHANICAL FALL HPI: HPI: Patient is a 50-year-old female presenting from prison for unwitnessed fall and left elbow pain. Patient reports she was ambulating to the bathroom when she "thinks I passed out". She was found by prison staff and EMS was subsequently called. She reports she thinks she had a seizure, she has history of seizures and pseudoseizures. She reports loss of consciousness. Had no prodromal symptoms. Does admit focal left elbow pain that is focal to left lateral portion of elbow with associated ecchymosis and swelling. She has no changes in motor or sensory function of distal left upper extremity, she remains neurovascularly intact. No fever, recent sick contacts, major changes in health noted Review of Systems: Review of Systems: Fourteen body systems of review of systems have been reviewed. See HPI for pertinent positives and negative responses, other tenorio all other systems are negative, non-pertinent or non-contributory Heart Score: C/O Chest Pain: No HEART Score for Chest Pain: HEART Score for Chest Pain Response (Comments) Value History Slighlty/Non-Suspicious 0 ECG Normal 0 Age >45 - < 65 1 Risk Factors 1 or 2 Risk Factors 1 Troponin < Normal Limit 0 Total 2 Risk Factors: Risk Factors: DM, Current or recent (<one month) smoker, HTN, HLP, family history of CAD, obesity. Risk Scores: Score 0 - 3: 2.5% MACE over next 6 weeks - Discharge Home Score 4 - 6: 20.3% MACE over next 6 weeks - Admit for Clinical Observation Score 7 - 10: 72.7% MACE over next 6 weeks - Early Invasive Strategies Allergies: Allergies: Allergies Coded Allergies Type Severity Reaction Last Updated Verified Benzodiazepines Allergy Intermediate 05/03/20 Yes blueberry Allergy Intermediate 05/03/20 Yes chlorpromazine Allergy Intermediate 05/03/20 Yes mushroom Allergy Intermediate 05/03/20 Yes psyllium Allergy Intermediate 05/03/20 Yes Physical Exam: PE: Constitutional: Pt is oriented to person, place, and time. Pt appears well-developed and well- nourished. HEENT: Head: Normocephalic and atraumatic. TMs clear, no hemotympanum Conjunctivae and EOM are normal. Pupils are equal, round, and reactive to light. Oropharynx is clear and moist. No hematomas or lacerations or abrasions to face or scalp OP clear, no blood, no malocclusion, dentition intact Nares clear, no nasal septal hematoma Midface stable Neck: C-spine midline nontender, no step-offs Cardiovascular: Normal rate, regular rhythm and normal heart sounds. Pulmonary/Chest: Effort normal and breath sounds normal. No respiratory distress. No wheezes. CTA bilaterally Abdominal: Soft. Bowel sounds are normal. Pt exhibits no distension. There is no te nderness. Musculoskeletal: Back bony tenderness to left lateral elbow with swelling and ecchymosis present, there is decreased range of motion due to pain otherwise unremarkable examination of entire left upper extremity Chest wall stable Pelvis stable and non-tender No vertebral TTP and spine without stepoffs Neurological: Pt is alert and oriented to person, place, and time. Moving all extremities willfully, able to wiggle all fingers and toes Alert and oriented x 3 Motor and sensory function intact Cranial nerves II through XII intact Skin: Skin is warm and dry. No abrasions, no lacerations Psychiatric: Odd affect, normal mood Current Patient Data: Labs: Laboratory Tests Test 06/18/20 01:40 White Blood Count 6.0 x10^3/uL Red Blood Count 4.44 x10^6/uL Hemoglobin 11.6 g/dL Hematocrit 35.7 % Mean Corpuscular Volume 80 fL Mean Corpuscular Hemoglobin 26 pg Mean Corpuscular Hemoglobin Concent 33 g/dL Red Cell Distribution Width 16.5 % Platelet Count 165 x10^3/uL Neutrophils (%) (Auto) 56 % Lymphocytes (%) (Auto) 31 % Monocytes (%) (Auto) 10 % Eosinophils (%) (Auto) 2 % Basophils (%) (Auto) 1 % Neutrophils # (Auto) 3.3 x10^3/uL Lymphocytes # (Auto) 1.9 x10^3/uL Monocytes # (Auto) 0.6 x10^3/uL Eosinophils # (Auto) 0.1 x10^3/uL Basophils # (Auto) 0.1 x10^3/uL Sodium Level 141 mmol/L Potassium Level 4.3 mmol/L Chloride Level 104 mmol/L Carbon Dioxide Level 23 mmol/L Anion Gap 14 Blood Urea Nitrogen 12 mg/dL Creatinine 0.7 mg/dL Estimated GFR (Cockcroft-Gault) 88.9 Glucose Level 166 mg/dL Lactic Acid Level 2.3 mmol/L Calcium Level 8.7 mg/dL Troponin I Quantitative < 0.017 ng/mL Current Medications Medications (Trade) Dose Ordered Sig/Farida Route PRN Reason Start Time Stop Time Status Last Admin Dose Admin Morphine Sulfate (Morphine Sulfate) 4 mg 1X ONCE IV 06/18/20 02:30 06/18/20 02:31 DC 06/18/20 02:07 Vital Signs: Vital Signs Date Time Temp Pulse Resp B/P (MAP) Pulse Ox O2 Delivery O2 Flow Rate FiO2 06/18/20 01:00 98.2 67 20 134/64 (87) 98 98.2 06/18/20 01:00 Room Air Vital Signs Date Time Temp Pulse Resp B/P (MAP) Pulse Ox O2 Delivery O2 Flow Rate FiO2 06/18/20 03:30 80 189/73 (111) 96 Room Air 06/18/20 02:07 18 06/18/20 01:00 98.2 98.2 EKG: EKG: EKG ordered and interpreted by myself at 011 5 hours as sinus rhythm at 81 bpm, unremarkable intervals, no axis deviation, no ischemic findings, no STEMI Radiology/Procedures: Radiology/Procedures: EXAM: LEFT ELBOW 3 VIEWS. HISTORY: Fall. COMPARISON: None. FINDINGS: No fractures are identified. Joint spaces and alignment are maintained. There is no joint effusion. IMPRESSION: 1. No fracture or joint effusion. Electronically signed by: Lexa Sotelo MD (06/18/2020 1:38 AM) [facility] ////////////////////////////////// EXAM: CHEST ONE VIEW. HISTORY: Fall. COMPARISON: 03/12/2019. FINDINGS: A frontal view of the chest is obtained. There are no confluent infiltrates. There is no pneumothorax or pleural effusion. Prominence of the left heart border most likely reflects an epicardial fat pad. Mild cardiomegaly cannot be excluded. IMPRESSION: 1. An epicardial fat pad is favored over mild cardiomegaly. Electronically signed by: Lexa Sotelo MD (06/18/2020 1:48 AM) [facility] ///////////////////////////////////////////////// EXAM: 1. CT HEAD WITHOUT CONTRAST. 2. CT CERVICAL SPINE WITHOUT CONTRAST. HISTORY: Fall, loss of consciousness. TECHNIQUE: Computed tomography of the head and cervical spine was performed without intravenous contrast. One or more of the following individualized dose reduction techniques were utilized for this examination: 1. Automated exposure control. 2. Adjustment of the mA and/or kV according to patient size. 3. Use of iterative reconstruction technique. COMPARISON: 06/07/2020. FINDINGS: There is no intracranial hemorrhage. Terry-white differentiation is preserved. The ventricles are normal in size and position. There is subcutaneous swelling along the right cheek. The visualized paranasal s inuses appear clear. The orbits are unremarkable. The temporal bones are unremarkable. The calvarium reveals no suspicious lesions. A mild cervical dextrocurvature is likely positional. The craniocervical junction is unremarkable. No fractures are identified. Degenerative disc disease is moderate from C5 through C7. There is no prevertebral soft tissue swelling. There is ossification of the nuchal ligament from C4 through C7. At C2-3, there is no significant stenosis. At C3-4, there is no significant stenosis. At C4-5, there appears to be a moderate posterior disc bulge, possibly with a moderate left paracentral protrusion. This is incompletely assessed by CT. Left lateral recess stenosis is suspected. At C5-6, there is a moderate posterior disc-osteophyte complex. Central canal stenosis is mild. There is more severe right lateral recess stenosis. Uncovertebral osteoarthritis is mild bilaterally. There is no clear neural foraminal stenosis. At C6-7, there is a moderate posterior disc-osteophyte complex. Central canal stenosis appears mild. A prominent submental lymph node measures 12 x 10 mm. 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 IMPRESSION: 1. No acute intracranial findings. 2. Soft tissue swelling along the right cheek. 3. No cervical fracture or malalignment. 4. MRI could further assess cervical degenerative changes as detailed above if there is persistent concern. 5. Prominent submental lymph node, likely reactive. Correlate clinically. Electronically signed by: Lexa Sotelo MD (06/18/2020 2:17 AM) [facility] Course & Med Decision Making: Course & Med Decision Making Vital signs stable. History and physical exam nonconcerning for emergent or surgical issues. ER work-up obtained. I disclosed high lactic acid and absence of any other concerning findings, discussed potential for genuine seizure causing patient's fall. I disclosed negative radiographs of left upper extremity and discussed diagnosis of contusion. Patient responded to ER intervention. Discussed little need for further diagnostic work-up and/or need for hospital admission. Continued supportive care advised with close follow-up with prison physician recommended. Strict return precautions were discussed with good understanding by patient, all questions and concerns addressed prior to ER departure Dragon Disclaimer: Dragellen Disclaimer: This electronic medical record was generated, in whole or in part, using a voice recognition dictation system. Departure Departure Impression: Primary Impression: Fall Additional Impressions: Contusion of left arm History of pseudoseizure Bipolar disorder Disposition: HOME / SELF CARE / HOMELESS Condition: STABLE Referrals: FELIPE HANSEN MD (PCP) Patient Instructions: Contusion, RICE - Routine Care for Injuries Additional Instructions: It is likely that you have experienced a contusion to your left upper arm causing you pain. The best treatment for this injury is continued range of motion (non weight bearing) to prevent a frozen joint. A Rest, Ice, Compression, Elevation (RICE) strategy may also be helpful in the acute phase. Please follow up with your primary doctor. Please return to the ED if new or worrisome symptoms arise prior to outpatient follow-up. It was a pleasure to take care of you and I wish you the best going forward. MONTRELL HARLEY DO June 18, 2020 01:17
--- NOTE | 2020-06-18 01:40 | RAD ---
EXAM: LEFT ELBOW 3 VIEWS. HISTORY: Fall. COMPARISON: None. FINDINGS: No fractures are identified. Joint spaces and alignment are maintained. There is no joint e ffusion. IMPRESSION: 1. No fracture or joint effusion. Electronically signed by: Lexa Sotelo MD (06/18/2020 1:38 AM) [facility]
[2020-06-18 01:48] LABS: BASO # 0.1 x10^3/uL (0.0-0.2); BASO % 1 % (0-3); EOS # 0.1 x10^3/uL (0.0-0.7); EOS % 2 % (0-3); HEMATOCRIT 35.7 % (36.0-47.0); HEMOGLOBIN 11.6 g/dL (12.0-15.5); LYMPH # 1.9 x10^3/uL (1.0-4.8); LYMPH % 31 % (24-48); MEAN CORPUSCULAR HEMOGLOBIN 26 pg (25-35); MEAN CORPUSCULAR HGB CONC 33 g/dL (31-37); MEAN CORPUSCULAR VOLUME 80 fL (79-100); MONO # 0.6 x10^3/uL (0.0-1.1); MONO % 10 % (0-9); NEUT # 3.3 x10^3/uL (1.8-7.7); NEUT % 56 % (31-73); PLATELET COUNT 165 x10^3/uL (140-400); RED BLOOD COUNT 4.44 x10^6/uL (3.50-5.40); RED CELL DISTRIBUTION WIDTH 16.5 % (11.5-14.5)
--- NOTE | 2020-06-18 01:51 | RAD ---
EXAM: CHEST ONE VIEW. HISTORY: Fall. COMPARISON: 03/12/2019. FINDINGS: A frontal view of the chest is obtained. There are no confluent infiltrates. There is no pneumothorax or pleural effusion. Prominence of the l eft heart border most likely reflects an epicardial fat pad. Mild cardiomegaly cannot be excluded. IMPRESSION: 1. An epicardial fat pad is favored over mild cardiomegaly. Electronically signed by: Lexa Sotelo MD (06/18/2020 1:48 AM) [facility]
[2020-06-18 02:01] LABS: CALCIUM 8.7 mg/dL (8.5-10.1); CREATININE 0.7 mg/dL (0.6-1.0); GFR 88.9; POTASSIUM 4.3 mmol/L (3.5-5.1)
--- NOTE | 2020-06-18 02:19 | RAD ---
EXAM: 1. CT HEAD WITHOUT CONTRAST. 2. CT CERVICAL SPINE WITHOUT CONTRAST. HISTORY: Fall, loss of consciousness. TECHNIQUE: Computed tomography of the head and cervical spine was performed without intravenous contr ast. One or more of the following individualized dose reduction techniques were utilized for this exa mination: 1. Automated exposure control. 2. Adjustment of the mA and/or kV according to patient size. 3. Use of iterative reconstruction technique. COMPARISON: 06/07/2020. FINDINGS: There is no intracranial hemorrhage. Terry-white differentiation is preserved. The ventricl es are normal in size and position. There is subcutaneous swelling along the right cheek. The visualized paranasal sinuses appear clear. The orbits are unremarkable. The temporal bones are unremarkable. The calvarium reveals no suspicious lesions. A mild cervical dextrocurvature is likely positional. The craniocervical junction is unremarkable. No fractures are identified. Degenerative disc disease is moderate from C5 through C7. There is no prev ertebral soft tissue swelling. There is ossification of the nuchal ligament from C4 through C7. At C2-3, there is no significant stenosis. At C3-4, there is no significant stenosis. At C4-5, there appears to be a moderate posterior disc bulge, possibly with a moderate left paracentr al protrusion. This is incompletely assessed by CT. Left lateral recess stenosis is suspected. At C5-6, there is a moderate posterior disc-osteophyte complex. Central canal stenosis is mild. There is more severe right lateral recess stenosis. Uncovertebral osteoarthritis is mild bilaterally. Ther e is no clear neural foraminal stenosis. At C6-7, there is a moderate posterior disc-osteophyte complex. Central canal stenosis appears mild. A prominent submental lymph node measures 12 x 10 mm. There appears to be an aberrant right subclavia n artery passing posterior to the esophagus. IMPRESSION: 1. No acute intracranial findings. 2. Soft tissue swelling along the right cheek. 3. No cervical fracture or malalignment. 4. MRI could further assess cervical degenerative changes as detailed above if there is persistent co ncern. 5. Prominent submental lymph node, likely reactive. Correlate clinically. Electronically signed by: Lexa Sotelo MD (06/18/2020 2:17 AM) [facility]
[2020-06-18] MEDS ORDERED: MORPHINE SULFATE 4 MG/ML VIAL. IV ONE (02:30)
[2020-06-18 03:30] VITALS: BP 189/73
--- NOTE | 2020-06-18 08:18 | EKG ---
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
== END 2020-06-18 03:09 | disposition home or self-care (01) ==
LOC: ER 00:51
DX: S50.02XA Contusion of left elbow, initial encounter (principal); M54.2 Cervicalgia; R51.9 Headache, unspecified; E11.9 Type 2 diabetes mellitus without complications; K21.9 Gastro-esophageal reflux disease without esophagitis; E78.00 Pure hypercholesterolemia, unspecified; E03.9 Hypothyroidism, unspecified; Z91.018 Allergy to other foods; Z88.8 Allergy status to other drugs, medicaments and biological substances; W18.39XA Other fall on same level, initial encounter; Y93.89 Activity, other specified; Y92.89 Other specified places as the place of occurrence of the external cause; Y99.8 Other external cause status
CPT/HCPCS: 36415; 70450; 71045; 72125; 73080; 80048; 83605; 84484; 85025; 93005; 96374; 99285; J2270

== ENCOUNTER 2020-06-19 17:06 | Emergency (ER) | payer MEDICARE, MEDICAID ==
[~2020-06-19] VITALS: Ht 165.1 cm; Wt 106.8 kg
[2020-06-19 17:15] VITALS: BP 144/75
[2020-06-19 17:55] LABS: HEMATOCRIT 35.6 % (36.0-47.0); HEMOGLOBIN 11.9 g/dL (12.0-15.5); RED BLOOD COUNT 4.45 x10^6/uL (3.50-5.40); RED CELL DISTRIBUTION WIDTH 15.6 % (11.5-14.5); WHITE BLOOD COUNT 5.2 x10^3/uL (4.0-11.0)
[2020-06-19 18:09] LABS: CALCIUM 9.2 mg/dL (8.5-10.1); CREATININE 0.9 mg/dL (0.6-1.0); GFR 66.5; POTASSIUM 3.5 mmol/L (3.5-5.1)
[2020-06-19 18:29] LABS: MAGNESIUM 1.3 mg/dL (1.8-2.4)
--- NOTE | 2020-06-19 18:32 | ED.ADGEN ---
Past Medical History Past Medical History: Diabetes-Type II, GERD, High Cholesterol, Hypothyroid, Seizure Additional Past Medical Histor: ZAC, LEFT FOOT DROP, CDIFF, Borderline personality, Past Surgical History: Other Additional Past Surgical Histo: "3 OSTOMY SURGERIES AND A TAKE DOWN." Smoking Status: Never Smoker Alcohol Use: None Drug Use: None General Adult EDM: Chief Complaint: SEIZURE HPI: HPI: Patient is a 50 year old female who comes in for her approximately 8 visit in less than 2 months for seizure activity and right knee pain. Is unsure per patient history of seizures he has, per chart review possibly has pseudoseizures. Was on Keppra but is been taking off her medications. Per report patient was using the restroom was states started "feel funny" and staff helped her down to the floor when she had convulsion-like activity. Unsure if she had any post ictal.. Patient denies hitting her knee on anything and is complaining of lateral pain. Review of Systems: Review of Systems: All other systems within normal limits except for as noted in the HPI Current Medications: Current Medications Medications (Trade) Dose Ordered Sig/Farida Start Time Stop Time Status Last Admin Dose Admin Magnesium Oxide (Magnesium Oxide) 400 mg 1X STAT 06/19/20 18:46 06/19/20 18:47 UNV Allergies: Allergies: Allergies Coded Allergies Type Severity Reaction Last Updated Verified Benzodiazepines Allergy Intermediate 05/03/20 Yes blueberry Allergy Intermediate 05/03/20 Yes chlorpromazine Allergy Intermediate 05/03/20 Yes mushroom Allergy Intermediate 05/03/20 Yes psyllium Allergy Intermediate 05/03/20 Yes Physical Exam: PE: Constitutional: Well developed, well nourished, no acute distress, non-toxic appearance. [] HENT: Normocephalic, atraumatic, bilateral external ears normal, nose normal. [] Eyes: PERRLA, conjunctiva normal, no discharge. [] Neck: No rigidity, supple, no stridor. [] Cardiovascular: Regular rate and rhythm, brisk cap refill [] Lungs & Thorax: Non labored symmetric respirations, no tachypnea or respiratory distress [] Abdomen: Soft, nondistended. Skin: Warm, dry, no erythema, no rash. [] Back: Unremarkable Extremities: No deformities, range of motion grossly intact, no lower extremity edema. Tenderness to lateral right knee, no effusion or deformity. [] Neurologic: Alert and oriented X 3, no focal deficits noted. [] Psychologic: Affect normal, judgement normal, mood normal. [] Current Patient Data: Labs: Laboratory Tests Test 06/19/20 17:18 White Blood Count 5.2 x10^3/uL (4.0-11.0) Red Blood Count 4.45 x10^6/uL (3.50-5.40) Hemoglobin 11.9 g/dL (12.0-15.5) L Hematocrit 35.6 % (36.0-47.0) L Mean Corpuscular Volume 80 fL (79-100) Mean Corpuscular Hemoglobin 27 pg (25-35) Mean Corpuscular Hemoglobin Concent 34 g/dL (31-37) Red Cell Distribution Width 15.6 % (11.5-14.5) H Platelet Count 162 x10^3/uL (140-400) Sodium Level 141 mmol/L (136-145) Potassium Level 3.5 mmol/L (3.5-5.1) Chloride Level 104 mmol/L (98-107) Carbon Dioxide Level 26 mmol/L (21-32) Anion Gap 11 (6-14) Blood Urea Nitrogen 15 mg/dL (7-20) Creatinine 0.9 mg/dL (0.6-1.0) Estimated GFR (Cockcroft-Gault) 66.5 Glucose Level 144 mg/dL (70-99) H Calcium Level 9.2 mg/dL (8.5-10.1) Magnesium Level 1.3 mg/dL (1.8-2.4) L Creatine Kinase 107 U/L (26-192) Laboratory Tests 06/19/20 17:18 Laboratory Tests 06/19/20 17:18 Vital Signs: Vital Signs Date Time Temp Pulse Resp B/P (MAP) Pulse Ox O2 Delivery O2 Flow Rate FiO2 06/19/20 17:15 99.2 89 15 144/75 (98) 96 Room Air 99.2 EKG: EKG: [] Heart Score: C/O Chest Pain: No Risk Factors: Risk Factors: DM, Current or recent (<one month) smoker, HTN, HLP, family history of CAD, obesity. Risk Scores: Score 0 - 3: 2.5% MACE over next 6 weeks - Discharge Home Score 4 - 6: 20.3% MACE over next 6 weeks - Admit for Clinical Observation Score 7 - 10: 72.7% MACE over next 6 weeks - Early Invasive Strategies Radiology/Procedures: Radiology/Procedures: EXAM: Right knee, 3 views. HISTORY: Pain. COMPARISON: None. FINDINGS: 3 views of the right knee are obtained. There is mild medial compartment spurring. There is no fracture, dislocation or subluxation. There is no joint effusion. There is minimal enthesopathy along the superior patella. IMPRESSION: Mild medial compartment osteoarthritis of the right knee. No acute osseous finding. [] Course & Med Decision Making: Course & Med Decision Making Pertinent Labs and Imaging studies reviewed. (See chart for details) Normal knee. Magnesium slightly low, given oral replacement emergency department. CK not elevated, supports likely pseudoseizure. [] Dragon Disclaimer: Dragon Disclaimer: This electronic medical record was generated, in whole or in part, using a voice recognition dictation system. Departure Departure Impression: Primary Impression: Pseudoseizure Additional Impression: Osteoarthritis of right knee Disposition: HOME / SELF CARE / HOMELESS Condition: STABLE Referrals: FELIPE HANSEN MD (PCP) Patient Instructions: Knee Wraps (Elastic Bandage) and RICE Problem Qualifiers CAITLIN PRATHER MD June 19, 2020 18:32
--- NOTE | 2020-06-19 18:32 | RAD ---
EXAM: Right knee, 3 views. HISTORY: Pain. COMPARISON: None. FINDINGS: 3 views of the right knee are obtained. There is mild medial compartment spurring. There is no fracture, dislocation or subluxation. There is no joint effusion. There is minimal enthesopathy a long the superior patella. IMPRESSION: Mild medial compartment osteoarthritis of the right knee. No acute osseous finding. Electronically signed by: Tameka Gomez MD (06/19/2020 6:30 PM) [facility]
[2020-06-19] MEDS ORDERED: MAGNESIUM OXIDE 400 MG TABLET PO STA (18:46)
[2020-06-19] MEDS ORDERED: ACETAMINOPHEN 500 MG TABLET PO ONE (19:00)
== END 2020-06-19 19:30 | disposition home or self-care (01) ==
LOC: ER 17:06
DX: R56.9 Unspecified convulsions (principal); M17.11 Unilateral primary osteoarthritis, right knee; E11.9 Type 2 diabetes mellitus without complications; K21.9 Gastro-esophageal reflux disease without esophagitis; E78.00 Pure hypercholesterolemia, unspecified; E03.9 Hypothyroidism, unspecified; Z91.018 Allergy to other foods; Z88.8 Allergy status to other drugs, medicaments and biological substances
CPT/HCPCS: 36415; 73562; 80048; 82550; 83735; 85027; 99284

== ENCOUNTER 2020-06-25 00:21 | Emergency (ER) | payer MEDICARE, MEDICAID ==
[~2020-06-25] VITALS: Ht 165.1 cm; Wt 106.8 kg
--- NOTE | 2020-06-25 01:00 | PHYS DOC ---
Past Medical History Past Medical History: Diabetes-Type II, GERD, High Cholesterol, Hypothyroid, Seizure Additional Past Medical Histor: ZAC, LEFT FOOT DROP, CDIFF, Borderline personality, Past Surgical History: Other Additional Past Surgical Histo: "3 OSTOMY SURGERIES AND A TAKE DOWN." Smoking Status: Never Smoker Alcohol Use: None Drug Use: None General Adult EDM: Chief Complaint: MECHANICAL FALL HPI: HPI: Patient is a 50yo female presenting via EMS for fall. Was at [place] on toilet straining to take a BM when she reports feeling dizzy. She pushed her call light for help and next thing she knew, she was on the ground. She does not remember this event, it was unwitnessed, she was not wearing her helmet. She is complain of left shoulder pain on arrival but has no changes in motor/sensory/neurovascular function of LUE. No other symptoms or changes in baseline health reported Review of Systems: Review of Systems: Fourteen body systems of review of systems have been reviewed. See HPI for pert inent positives and negative responses, other tenorio all other systems are negative, non-pertinent or non-contributory Heart Score: C/O Chest Pain: No HEART Score for Chest Pain: HEART Score for Chest Pain Response (Comments) Value History Slighlty/Non-Suspicious 0 ECG Normal 0 Age >45 - < 65 1 Risk Factors 1 or 2 Risk Factors 1 Troponin < Normal Limit 0 Total 2 Risk Factors: Risk Factors: DM, Current or recent (<one month) smoker, HTN, HLP, family history of CAD, obesity. Risk Scores: Score 0 - 3: 2.5% MACE over next 6 weeks - Discharge Home Score 4 - 6: 20.3% MACE over next 6 weeks - Admit for Clinical Observation Score 7 - 10: 72.7% MACE over next 6 weeks - Early Invasive Strategies Allergies: Allergies: Allergies Coded Allergies Type Severity Reaction Last Updated Verified Benzodiazepines Allergy Intermediate 05/03/20 Yes blueberry Allergy Intermediate 05/03/20 Yes chlorpromazine Allergy Intermediate 05/03/20 Yes mushroom Allergy Intermediate 05/03/20 Yes psyllium Allergy Intermediate 05/03/20 Yes Physical Exam: PE: Constitutional: Pt is oriented to person, place, and time. Pt appears well-developed and well- nourished. HEENT: Head: Normocephalic and atraumatic. TMs clear, no hemotympanum Conjunctivae and EOM are normal. Pupils are equal, round, and reactive to light. Oropharynx is clear and moist. No hematomas or lacerations or abrasions to face or scalp OP clear, no blood, no malocclusion, dentition intact Nares clear, no nasal septal hematoma Midface stable Neck: C-spine midline nontender, no step-offs Cardiovascular: Normal rate, regular rhythm and normal heart sounds. Pulmonary/Chest: Effort normal and breath sounds normal. No respiratory distress. No wheezes. CTA bilaterally Abdominal: Soft. Bowel sounds are normal. Pt exhibits no distension. There is no tenderness. Musculoskeletal: No bony tenderness to extremities, no deformities, full ROM extremities Chest wall stable Pelvis stable and non-tender No vertebral TTP and spine without stepoffs Neurological: Pt is alert and oriented to person, place, and time. Moving all extremities willfully, able to wiggle all fingers and toes Alert and oriented x 3 Sensation grossly intact Skin: Skin is warm and dry. No abrasions, no lacerations Ecchymosis to left shoulder present and residual soft tissue swelling over left elbow from recent injury/fall evaluated for at our facility Well-healed horizontal laceration claire to bilateral flexor surfaces of UEs Psychiatric: Odd affect Current Patient Data: Labs: Laboratory Tests Test 06/25/20 01:50 White Blood Count 7.3 x10^3/uL Red Blood Count 4.27 x10^6/uL Hemoglobin 11.5 g/dL Hematocrit 34.3 % Mean Corpuscular Volume 80 fL Mean Corpuscular Hemoglobin 27 pg Mean Corpuscular Hemoglobin Concent 34 g/dL Red Cell Distribution Width 15.8 % Platelet Count 173 x10^3/uL Neutrophils (%) (Auto) 55 % Lymphocytes (%) (Auto) 32 % Monocytes (%) (Auto) 10 % Eosinophils (%) (Auto) 2 % Basophils (%) (Auto) 1 % Neutrophils # (Auto) 4.0 x10^3/uL Lymphocytes # (Auto) 2.4 x10^3/uL Monocytes # (Auto) 0.7 x10^3/uL Eosinophils # (Auto) 0.1 x10^3/uL Basophils # (Auto) 0.1 x10^3/uL Sodium Level 143 mmol/L Potassium Level 4.2 mmol/L Chloride Level 107 mmol/L Carbon Dioxide Level 25 mmol/L Anion Gap 11 Blood Urea Nitrogen 12 mg/dL Creatinine 0.9 mg/dL Estimated GFR (Cockcroft-Gault) 66.5 BUN/Creatinine Ratio 13 Glucose Level 154 mg/dL Calcium Level 8.7 mg/dL Total Bilirubin 0.2 mg/dL Aspartate Amino Transf (AST/SGOT) 59 U/L Alanine Aminotransferase (ALT/SGPT) 108 U/L Alkaline Phosphatase 55 U/L Troponin I Quantitative < 0.017 ng/mL Total Protein 6.7 g/dL Albumin 4.1 g/dL Albumin/Globulin Ratio 1.6 Vital Signs: Vital Signs Date Time Temp Pulse Resp B/P (MAP) Pulse Ox O2 Delivery O2 Flow Rate FiO2 06/25/20 00:25 97.6 82 18 140/68 (92) 98 Room Air 97.6 Vital Signs Date Time Temp Pulse Resp B/P (MAP) Pulse Ox O2 Delivery O2 Flow Rate FiO2 06/25/20 02:00 82 16 138/79 (98) 98 Room Air 06/25/20 00:25 97.6 97.6 EKG: EKG: EKG ordered and interpreted by myself at 0119 hrs. as sinus rhythm at 81 bpm, unremarkable intervals, no axis deviation, no acute ischemic findings, next Radiology/Procedures: Radiology/Procedures: INDICATION: Reason: FALL, LEFT SHLD PAIN / Spl. Instructions: / History: COMPARISON: None. IMPRESSION: Left shoulder: 3 views obtained. No acute fracture or dislocation Electronically signed by: Brien Wood MD (06/25/2020 1:11 AM) [id number] //////////////// Course & Med Decision Making: Course & Med Decision Making VSS. HPI and PE non-concerning for emergent/surgical issues ER workup obtained and non-concerning Patient refusing head CT. She has full capacity. Risks vs. benfits of head CT discussed at length, patient understood risk but declining, wants pain medication and food I reviewed ER visit. Cause of fall likely vasovagal from straining. Has history of seizures/pseudoseizures, these could have happened but unknown as event was unwitnessed I advised her to follow-up with [place] physician for continuity of care to review today's ER visit in addition to recent visit here in past 7 days. Especially because patient refused head CT, strict return precautions discussed with good understanding. Continued supportive care and close follow-up advised Colten Disclaimer: Colten Disclaimer: This electronic medical record was generated, in whole or in part, using a voice recognition dictation system. Departure Departure Impression: Primary Impression: Fall Additional Impressions: History of seizure History of pseudoseizure Contusion of left arm Disposition: HOME / SELF CARE / HOMELESS Condition: STABLE Referrals: FELIPE HANSEN MD (PCP) Patient Instructions: Contusion Additional Instructions: It is unclear what caused your fall but you likely suffered a vasovagal episode while straining on the toilet. It is likely that you have experienced a contusion to your left arm that is causing you pain. The best treatment for this injury is continued range of motion to prevent a frozen joint. A Rest, Ice, Compression, Elevation (RICE) strategy may also be helpful in the acute phase. You refused your CT head imaging and were aware of the risks and benefits of doing so prior to ER departure. As such, it is important you follow-up with [facility] and review recent ER visits at length. Please do not hesitate to come back to the ER for repeat evaluation if any concerning signs or symptoms present prior to outpatient follow-up MONTRELL HARLEY DO June 25, 2020 01:00
--- NOTE | 2020-06-25 01:13 | RAD ---
INDICATION: Reason: FALL, LEFT SHLD PAIN / Spl. Instructions: / History: COMPARISON: None. IMPRESSION: Left shoulder: 3 views obtained. No acute fracture or dislocation Electronically signed by: Brien Wood MD (06/25/2020 1:11 AM) [id number]
--- NOTE | 2020-06-25 01:15 | RAD ---
INDICATION: Reason: FALL, LEFT SHLD PAIN / Spl. Instructions: / History: COMPARISON: June 18, 2020 FINDINGS: Single view chest Cardiomediastinal silhouette is similar to prior and appears mildly enlarged. No definite new region of airspace consolidation or edema. A grossly displaced fracture is not seen. IMPRESSION: * Similar exam compared to prior. Electronically signed by: Brien Wood MD (06/25/2020 1:12 AM) [id number]
[2020-06-25 01:58] LABS: BASO # 0.1 x10^3/uL (0.0-0.2); BASO % 1 % (0-3); EOS # 0.1 x10^3/uL (0.0-0.7); EOS % 2 % (0-3); HEMATOCRIT 34.3 % (36.0-47.0); HEMOGLOBIN 11.5 g/dL (12.0-15.5); LYMPH # 2.4 x10^3/uL (1.0-4.8); LYMPH % 32 % (24-48); MEAN CORPUSCULAR HEMOGLOBIN 27 pg (25-35); MEAN CORPUSCULAR HGB CONC 34 g/dL (31-37); MEAN CORPUSCULAR VOLUME 80 fL (79-100); MONO # 0.7 x10^3/uL (0.0-1.1); MONO % 10 % (0-9); NEUT % 55 % (31-73); PLATELET COUNT 173 x10^3/uL (140-400); RED BLOOD COUNT 4.27 x10^6/uL (3.50-5.40); RED CELL DISTRIBUTION WIDTH 15.8 % (11.5-14.5); WHITE BLOOD COUNT 7.3 x10^3/uL (4.0-11.0)
[2020-06-25 02:00] VITALS: BP 138/79
[2020-06-25 02:11] LABS: CALCIUM 8.7 mg/dL (8.5-10.1); CREATININE 0.9 mg/dL (0.6-1.0); GFR 66.5; POTASSIUM 4.2 mmol/L (3.5-5.1)
[2020-06-25 02:25] LABS: ALBUMIN 4.1 g/dL (3.4-5.0); ALBUMIN/GLOBULIN RATIO 1.6 (1.0-1.7); TOTAL BILIRUBIN 0.2 mg/dL (0.2-1.0); TOTAL PROTEIN 6.7 g/dL (6.4-8.2)
--- NOTE | 2020-06-25 07:36 | EKG ---
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
== END 2020-06-25 04:45 | disposition home or self-care (01) ==
LOC: ER 00:21
DX: R42 Dizziness and giddiness (principal); E11.9 Type 2 diabetes mellitus without complications; S40.012A Contusion of left shoulder, initial encounter; K21.9 Gastro-esophageal reflux disease without esophagitis; E78.00 Pure hypercholesterolemia, unspecified; E03.9 Hypothyroidism, unspecified; Z88.8 Allergy status to other drugs, medicaments and biological substances; Z91.018 Allergy to other foods; W18.39XA Other fall on same level, initial encounter; Y93.89 Activity, other specified; Y92.89 Other specified places as the place of occurrence of the external cause; Y99.8 Other external cause status
CPT/HCPCS: 36415; 71045; 73030; 80053; 84484; 85025; 93005; 99285-25